=== PATIENT | male | born 1980 | race Caucasian/White ===

== ENCOUNTER → 2019-10-29 09:49 | Outpatient (CLI) | payer OTHER, SELFPAY ==
--- NOTE | 2019-10-29 09:55 | DI.RAD.S_ITS ---
PROCEDURE: XR KNEE LT 3V INDICATIONS: BILATERAL DEGENERATIVE JOINT DISEASE TECHNIQUE: 3 views of the knee were acquired. COMPARISON: None. FINDINGS: Bones: No fractures or dislocations. No suspicious bony lesions. Minimal degenerative changes of the left knee. Soft tissues: No joint effusion. No suspicious soft tissue calcifications. IMPRESSION: Left knee with minimal osteoarthritic changes. Dictated by: Nathanael Baires M.D. on 10/29/2019 at 14:43 Approved by: Nathanael Baires M.D. on 10/29/2019 at 14:44
--- NOTE | 2019-10-29 09:55 | DI.RAD.S_ITS ---
PROCEDURE: XR KNEE RT 3V INDICATIONS: BILATERAL DEGENERATIVE JOINT DISEASE TECHNIQUE: 3 views of the knee were acquired. COMPARISON: None. FINDINGS: Bones: No fractures or dislocations. Minimal tricompartmental degenerative changes of the right knee. No suspicious bony lesions. Soft tissues: No joint effusion. No suspicious soft tissue calcifications. IMPRESSION: Minimal tricompartmental osteoarthrosis of the right knee. No significant joint effusion. No acute osseous abnormalities. Dictated by: Nathanael Baires M.D. on 10/29/2019 at 14:02 Approved by: Nathanael Baires M.D. on 10/29/2019 at 14:03
== END ==
PROVIDERS: Referring Provider Family Medicine; Visit Provider Family Medicine
DX: M17.0 Bilateral primary osteoarthritis of knee (principal)
CPT/HCPCS: 73562

== ENCOUNTER 2020-04-08 16:43 | Emergency (ER) | payer OTHER, SELFPAY ==
[2020-04-08] VITALS (10 sets, daily range): BP systolic 124–147; BP diastolic 71–90; PULSE 73–91; RESP 18; TEMP 36.4; O2SAT 94–99; BMI 35.2
[2020-04-08 17:42] LABS: Add Manual Diff / Slide Review NO; Basophils Absolute Auto 100 /uL (0-100); Basophils Percent Auto 0.7 % (0-2); Eosinophils Absolute Auto 0 /uL (0-450); Eosinophils Percent Auto 0.2 % (2-4); Hematocrit 39.2 % (41-53); Hemoglobin 13.2 g/dL (13.5-17.5); Lymphocytes Absolute Auto 1700 /uL (1100-4500); Mean Corpuscular HGB Conc 33.7 % (30-36); Mean Corpuscular Hemoglobin 28.3 PG (26-34); Mean Corpuscular Volume 83.9 fL (80-100); Monocytes Absolute Auto 1100 /uL (0-900); Monocytes Percent Auto 6.7 % (3-14); Neutrophils Absolute Auto 13600 /uL (1500-7000); Neutrophils Percent Auto 82.4 % (50-75); Platelet Count 281 X10^3/uL (150-400); Red Blood Cell Count 4.67 X10^6/uL (4.5-5.9); Red Cell Distribution Width 13.7 % (11.6-14.8); White Blood Cell Count 16.5 X10^3/uL (4.5-11.0)
[2020-04-08 17:45] LABS: INR 1.2 (0.9-1.3); Prothrombin Time 13.2 SECONDS (10.1-12.7)
[2020-04-08 17:48] LABS: PTT Partial Thromboplastin Tim 32 SECONDS (26.4-36.2)
[2020-04-08 17:49] LABS: Alanine Aminotransferase 28 IU/L (<50); Albumin 4.6 g/dL (3.5-5.0); Albumin Globulin Ratio 1.6 (1.0-2.8); Alkaline Phosphatase 70 U/L (38-126); Aspartate Aminotransferase 25 IU/L (17-59); BUN Creatinine Ratio 17.7 (6-22); Bilirubin Total 0.3 mg/dL (0.2-1.3); Blood Urea Nitrogen 23 mg/dL (9-20); Calcium 9.3 mg/dL (8.4-10.2); Carbon Dioxide 29 mmol/L (22-32); Chloride 106 mmol/L (98-107); Estimated Glomerular Filt Rate > 60.0 mL/min (>60); Globulin 2.9 g/dL (1.7-4.1); Glucose 103 mg/dL (70-100); HEMOLYSIS < 15 (0-50); Lipase 75 U/L (23-300); Potassium 3.7 mmol/L (3.4-5.1); Sodium 139 mmol/L (137-145); Total Protein 7.5 g/dL (6.3-8.2)
--- NOTE | 2020-04-08 18:48 | DI.CT.S_ITS ---
PROCEDURE: CT ABDOMEN PELVIS W CON INDICATIONS: RLQ pain with leukocytosis TECHNIQUE: After the administration of intravenous contrast, 5 mm thick sections acquired from the diaphragm to the symphysis. 5 mm coronal and sagittal reformats were acquired. For radiation dose reduction, the following was used: automated exposure control, adjustment of mA and/or kV according to patient size. COMPARISON: None. FINDINGS: Image quality: Excellent. ABDOMEN: Lung bases: Lung bases are clear. Heart size is normal. Solid organs: Liver is normal in size and enhancement. Moderate hepatic steatosis is seen. No discrete hepatic lesion. Gallbladder is within normal limits. Biliary system is non dilated. Pancreas enhances normally. Spleen is normal in size and enhancement. No adrenal nodules. Right kidney is asymmetrically enlarged. Moderate right-sided hydronephrosis and hydroureter is seen.. There is mild to moderate right perinephric fat stranding. 6 millimeter calcification is seen in right UVJ consistent with right UVJ stone. No left-sided renal stone or hydronephrosis is seen. No left perinephric fat stranding. Peritoneum and bowel: Bowel loops demonstrate normal wall thickness and caliber. No free fluid or air. Appendix is visualized and is within normal limits. Nodes and vessels: No retroperitoneal or mesenteric adenopathy by size criteria. Aorta and inferior vena cava are normal in size. Miscellaneous: No ventral hernias. PELVIS: Genitourinary: Bladder wall thickness is normal. Miscellaneous: No inguinal adenopathy. Left greater than right bilateral inguinal hernia are seen containing fat only. Bones: No suspicious bony lesions. No vertebral body compression fractures. IMPRESSION: 1. 6 mm right UVJ stone with moderate right-sided hydronephrosis and hydroureter and right perinephric fat stranding. No left-sided renal stone or hydronephrosis. 2. Hepatic steatosis. No discrete hepatic lesion. 3. Normal appendix. No bowel obstruction. No free fluid or free air. Dictated by: Eduardo Brady M.D. on 04/08/2020 at 19:17 Approved by: Eduardo Brady M.D. on 04/08/2020 at 19:20
[2020-04-08 18:56] LABS: Bacteria Urine None Seen
[2020-04-08 19:13] LABS: Amorphous Sediment Urine 1+; Calcium Oxalate Crystals Urine Moderate; Mucus Urine 2+ (Negative); RBC Urine 1-5/HPF (0-5/HPF); Squamous Epithelial Cell Urine 0-1 /HPF (0-5/HPF); WBC Urine 1-5/HPF (0-5/HPF)
[2020-04-08 19:14] LABS: Culture Indicated Urine Cult Not Indicated
--- NOTE | 2020-04-08 21:31 | ED.ABDPAIN ---
HPI - Abdominal Pain General Chief Complaint: Abdominal Pain Stated Complaint: abd pain , sent by MD Time Seen by Provider: 04/08/20 18:41 Source: patient Mode of arrival: Ambulatory History of Present Illness HPI narrative: Otherwise healthy 39-year-old man with 4 days of intermittent and increasing right lower quadrant pain. He describes no fevers, cough, palpitations, dysuria, gross hematuria or constipation. Related Data Previous Rx's Medication Instructions Recorded oxycodone-acetaminophen 1 tab PO Q6H PRN 7 Days #14 tab 04/08/20 tamsulosin 0.4 mg PO DAILY #30 cap 04/08/20 Allergies Allergy/AdvReac Type Severity Reaction Status Date / Time Penicillins Allergy Hives Verified 04/08/20 17:01 Review of Systems Review of Systems ROS Unobtainable: All systems reviewed & are unremarkable except as noted in HPI and below Patient History Medical History (Updated 04/09/20 @ 01:48 by Nyla Enriquez MD) Ureterolithiasis Social History Smoking Status: Never smoker Smoking Status: Never smoker Substance Use Type: does not use Exam Narrative Exam Narrative: General: Healthy appearance, mildly uncomfortable holding his right lower quadrant. Able to give a complete and coherent history. Well-nourished well-developed HEENT: Moist mucous membranes, normal sclera with reactive pupils, Respiratory: Lungs are clear to auscultation, no wheezing no rales no rhonchi. Full and symmetrical air movement Cardiac: Regular rate and rhythm no murmurs no bruits Abdomen: Soft, mild tenderness in the right lower quadrant without rebound or guarding, good bowel tones, no flank pain Skin: Warm and dry, no rashes Neurologic: Grossly neurologically intact with no obvious asymmetries or abnormalities Extremities: No trauma, well perfused Psych: Cooperative, appropriate insight and affect Initial Vital Signs Initial Vital Signs: Vital Signs Temperature 97.5 F L 04/08/20 16:55 Pulse Rate 82 04/08/20 16:55 Respiratory Rate 18 04/08/20 16:55 Blood Pressure 144/85 H 04/08/20 16:55 Pulse Oximetry 98 04/08/20 16:55 Course Orders Ordered: ED Orders 04/08/20 17:25 Complete Blood Count AUTO DIFF Stat Comprehensive Metabolic Panel Stat Lipase Stat Partial Thromboplastin Time Stat Prothrombin Time INR Stat 04/08/20 18:15 Urine Microscopic Stat 04/08/20 18:48 CT abdomen pelvis w con Stat Discontinued Medications Hydromorphone HCl (Hydromorphone 0.5 Mg Inj) 0.5 mg IV Q15MIN PRN PRN Reason: Pain, Last Admin: 04/08/20 21:44 Dose: 0.5 mg Documented by: MICKI Sodium Chloride (Normal Saline 0.9%) 1,000 mls @ 1,000 mls/hr IV BOLUS ONE Stop: 04/08/20 22:31 Last Infusion: 04/08/20 22:57 Dose: 0 mls/hr Documented by: Admin: 04/08/20 21:45 Dose: 1,000 mls/hr Documented by: MICKI Ketorolac Tromethamine (Ketorolac 60 Mg/2 Ml Vial) 15 mg IV NOW ONE Stop: 04/08/20 21:33 Last Admin: 04/08/20 21:45 Dose: 15 mg Documented by: MICKI Ondansetron HCl (Ondansetron 4 Mg/2 Ml Inj) 4 mg IV NOW ONE Stop: 04/08/20 21:33 Last Admin: 04/08/20 21:45 Dose: 4 mg Documented by: MICKI Tamsulosin HCl (Tamsulosin 0.4 Mg Capsule) 0.4 mg PO NOW ONE Stop: 04/08/20 22:28 Last Admin: 04/08/20 22:43 Dose: 0.4 mg Documented by: OH Vital Signs Vital signs: Vital Signs - 8 hr 04/08/20 20:16 04/08/20 20:30 04/08/20 21:00 Pulse Rate 84 78 83 Blood Pressure 141/83 H 140/76 133/73 Pulse Oximetry 96 97 99 04/08/20 21:30 04/08/20 22:00 04/08/20 22:30 Pulse Rate 73 78 88 Blood Pressure 134/90 147/85 H 143/82 H Pulse Oximetry 99 95 96 04/08/20 23:00 04/08/20 23:01 04/08/20 23:30 Pulse Rate 88 91 H 76 Blood Pressure 124/75 134/71 Pulse Oximetry 95 95 94 MDM - Abdominal Pain Medical Records Attestation: I reviewed the patient's medical records. Lab Data Attestation: I reviewed the patient's lab results. Result diagrams: 04/08/20 17:25 04/08/20 17:25 Labs: Lab Results 04/08/20 04/08/20 04/08/20 Range/Units 17:25 17:25 17:25 WBC 16.5 H (4.5-11.0) X10^3/uL RBC 4.67 (4.5-5.9) X10^6/uL Hgb 13.2 L (13.5-17.5) g/dL Hct 39.2 L (41-53) % MCV 83.9 (80-100) fL MCH 28.3 (26-34) PG MCHC 33.7 (30-36) % RDW 13.7 (11.6-14.8) % Plt Count 281 (150-400) X10^3/uL Neut % (Auto) 82.4 H (50-75) % Lymph % (Auto) 10.0 L (25-40) % [place] % (Auto) 6.7 (3-14) % Eos % (Auto) 0.2 L (2-4) % Baso % (Auto) 0.7 (0-2) % Neut # (Auto) 34061 H (4681-5347) /uL Lymph # (Auto) 1700 (0404-9200) /uL [place] # (Auto) 1100 H (0-900) /uL Eos # (Auto) 0 (0-450) /uL Baso # (Auto) 100 (0-100) /uL PT 13.2 H (10.1-12.7) SECONDS INR 1.2 (0.9-1.3) APTT 32 (26.4-36.2) SECONDS Sodium 139 (137-145) mmol/L Potassium 3.7 (3.4-5.1) mmol/L Chloride 106 (98-107) mmol/L Carbon Dioxide 29 (22-32) mmol/L BUN 23 H (9-20) mg/dL Creatinine 1.30 H (0.66-1.25) mg/dL Estimated GFR > 60.0 (>60) mL/min BUN/Creatinine Ratio 17.7 (6-22) Glucose 103 H (70-100) mg/dL Calcium 9.3 (8.4-10.2) mg/dL Total Bilirubin 0.3 (0.2-1.3) mg/dL AST 25 (17-59) IU/L ALT 28 (<50) IU/L Alkaline Phosphatase 70 (38-126) U/L Total Protein 7.5 (6.3-8.2) g/dL Albumin 4.6 (3.5-5.0) g/dL Globulin 2.9 (1.7-4.1) g/dL Albumin/Globulin Ratio 1.6 (1.0-2.8) Lipase 75 (23-300) U/L Urine RBC (0-5/HPF) Urine WBC (0-5/HPF) Ur Squamous Epith Cells (0-5/HPF) Calcium Oxalate Crystal Amorphous Sediment Urine Bacteria (None) Urine Mucus (Negative) Ur Culture Indicated? 04/08/20 Range/Units 18:15 WBC (4.5-11.0) X10^3/uL RBC (4.5-5.9) X10^6/uL Hgb (13.5-17.5) g/dL Hct (41-53) % MCV (80-100) fL MCH (26-34) PG MCHC (30-36) % RDW (11.6-14.8) % Plt Count (150-400) X10^3/uL Neut % (Auto) (50-75) % Lymph % (Auto) (25-40) % [place] % (Auto) (3-14) % Eos % (Auto) (2-4) % Baso % (Auto) (0-2) % Neut # (Auto) (1986-4136) /uL Lymph # (Auto) (8700-4485) /uL [place] # (Auto) (0-900) /uL Eos # (Auto) (0-450) /uL Baso # (Auto) (0-100) /uL PT (10.1-12.7) SECONDS INR (0.9-1.3) APTT (26.4-36.2) SECONDS Sodium (137-145) mmol/L Potassium (3.4-5.1) mmol/L Chloride (98-107) mmol/L Carbon Dioxide (22-32) mmol/L BUN (9-20) mg/dL Creatinine (0.66-1.25) mg/dL Estimated GFR (>60) mL/min BUN/Creatinine Ratio (6-22) Glucose (70-100) mg/dL Calcium (8.4-10.2) mg/dL Total Bilirubin (0.2-1.3) mg/dL AST (17-59) IU/L ALT (<50) IU/L Alkaline Phosphatase (38-126) U/L Total Protein (6.3-8.2) g/dL Albumin (3.5-5.0) g/dL Globulin (1.7-4.1) g/dL Albumin/Globulin Ratio (1.0-2.8) Lipase (23-300) U/L Urine RBC 1-5/hpf (0-5/HPF) Urine WBC 1-5/hpf (0-5/HPF) Ur Squamous Epith Cells 0-1 /hpf (0-5/HPF) Calcium Oxalate Crystal Moderate H Amorphous Sediment 1+ Urine Bacteria None seen (None) Urine Mucus 2+ H (Negative) Ur Culture Indicated? Cult not indicated Point of care testing: Urine Dip Bedside Urine Glucose Negative Bedside Urine Bilirubin - Negative Bedside Urine Ketone +/- 5 Urine Specific [place] 1.030 Bedside Urine Occult Blood +/- Bedside Urine pH 6.0 Bedside Urine Protein +/- 15 Bedside Urine Urobilinogen - Negative Bedside Urine Nitrite - Negative Bedside Urine Leukocytes - Negative Esterase Imaging Data CT scan - abdomen/pelvis: Radiologist's Impression: FINDINGS: Image quality: Excellent. ABDOMEN: Lung bases: Lung bases are clear. Heart size is normal. Solid organs: Liver is normal in size and enhancement. Moderate hepatic steatosis is seen. No discrete hepatic lesion. Gallbladder is within normal limits. Biliary system is non dilated. Pancreas enhances normally. Spleen is normal in size and enhancement. No adrenal nodules. Right kidney is asymmetrically enlarged. Moderate right-sided hydronephrosis and hydroureter is seen.. There is mild to moderate right perinephric fat stranding. 6 millimeter calcification is seen in right UVJ consistent with right UVJ stone. No left-sided renal stone or hydronephrosis is seen. No left perinephric fat stranding. Peritoneum and bowel: Bowel loops demonstrate normal wall thickness and caliber. No free fluid or air. Appendix is visualized and is within normal limits. Nodes and vessels: No retroperitoneal or mesenteric adenopathy by size criteria. Aorta and inferior vena cava are normal in size. Miscellaneous: No ventral hernias. PELVIS: Genitourinary: Bladder wall thickness is normal. Miscellaneous: No inguinal adenopathy. Left greater than right bilateral inguinal hernia are seen containing fat only. Bones: No suspicious bony lesions. No vertebral body compression fractures. IMPRESSION: 1. 6 mm right UVJ stone with moderate right-sided hydronephrosis and hydroureter and right perinephric fat stranding. No left-sided renal stone or hydronephrosis. 2. Hepatic steatosis. No discrete hepatic lesion. 3. Normal appendix. No bowel obstruction. No free fluid or free air. Dictated by: Eduardo Brady M.D. on 04/08/2020 at 19:17 MDM Narrative Medical decision making narrative: 39-year-old gentleman presents with right lower quadrant pain that CT scan suggests is due to a 6 mm ureteral stone at the ureteral vesicle junction. There is no evidence of appendicitis or other intra-abdominal abscess or concerning findings. Labs are also reassuring. He responds nicely to IV fluids and Toradol. He is given initial dose of tamsulosin in the emergency department. Pain is adequately controlled at this point no evidence of acute renal failure. He did have a moderate leukocytosis however I suspect that this is due to demargination rather than acute infection. He has no other infectious source identified in his urine does not show any bacteria. CT scan does not suggest perinephric stranding to raise concerns of pyelonephritis are infection associated with the newly diagnosed kidney stone. Questions are answered and anticipatory guidance reviewed. Patient is safe for home discharge Discharge Plan Departure Patient Disposition: Home Clinical Impression: Ureterolithiasis Instructions: DI for Kidney Stones Activity Restrictions/Additional Instructions: Thank you for coming in today You have a 6 mm kidney stone on the right side almost ready to drop into your bladder. I am going to send you home with small prescription for Percocet if you continue to have pain. Using 400 mg of ibuprofen (2 [id number] pills) and 1 Tylenol every 6 hours can be very helpful in controlling pain. For severe pain to ibuprofen and 1 Percocet can be very helpful. I am also going to give you a prescription for Flomax. This can help the tissue relax enough for the stone to more easily pass. Once the stone is out you can stop taking the Flomax Your white blood cell count today was slightly elevated but I did not find any other evidence of infection. If you develop fevers or if begins to burn with urination or feel like a bladder infection, you need to return to the emergency department I am going to suggest that you follow-up with our urologist, Dr. Bacon. I hope you feel better Prescriptions: New oxycodone-acetaminophen 5-325 mg tablet 1 tab PO Q6H PRN (Reason: pain) 7 Days Qty: 14 RF: 0 tamsulosin 0.4 mg capsule 0.4 mg PO DAILY Qty: 30 RF: 0 Referrals: Jesus Feliciano MD [Primary Care Provider] - Renetta Bacon MD [Physician] -
[2020-04-08] MEDS: HYDROMORPHONE 0.5 MG INJ IV (21:44)
[2020-04-08] MEDS: ONDANSETRON 4 MG/2 ML INJ IV (21:45)
[2020-04-08] MEDS: KETOROLAC 60 MG/2 ML VIAL 15 MG IV (21:45)
[2020-04-08] MEDS: SODIUM CHLORIDE 0.9% 1,000 ML 1000 ML IV (21:45)
[2020-04-08] MEDS: TAMSULOSIN 0.4 MG CAPSULE PO (22:43)
== END 2020-04-08 23:57 | disposition home or self-care (01) ==
PROVIDERS: Emergency Medicine; Emergency Provider Emergency Medicine; PCP Family Medicine
DX: N20.1 Calculus of ureter (principal); D72.829 Elevated white blood cell count, unspecified
CPT/HCPCS: 36415; 74177; 80053; 81003; 81015; 83690; 85025; 85610; 85730; 96361; 96374; 96375; 99283; 99284; J1170; J1885; J2405

== ENCOUNTER → 2024-07-05 11:16 | Outpatient (CLI) | payer OTHER, SELFPAY ==
[2024-07-05 12:14] LABS: Add Manual Diff / Slide Review NO; Basophils Absolute Auto 100 /uL (0-100); Eosinophils Absolute Auto 100 /uL (0-450); Eosinophils Percent Auto 1.1 % (2-4); Hematocrit 41.4 % (41-53); Hemoglobin 14.4 g/dL (13.5-17.5); Lymphocytes Absolute Auto 2300 /uL (1100-4500); Lymphocytes Percent Auto 22.9 % (25-40); Mean Corpuscular HGB Conc 34.8 % (30-36); Mean Corpuscular Hemoglobin 29.5 PG (26-34); Mean Corpuscular Volume 84.8 fL (80-100); Monocytes Absolute Auto 900 /uL (0-900); Monocytes Percent Auto 9.3 % (3-14); Neutrophils Absolute Auto 6600 /uL (1500-7000); Neutrophils Percent Auto 65.7 % (50-75); Platelet Count 269 X10^3/uL (150-400); Red Blood Cell Count 4.88 X10^6/uL (4.5-5.9); Red Cell Distribution Width 14.3 % (11.6-14.8)
[2024-07-05 12:44] LABS: Alanine Aminotransferase 23 IU/L (<50); Albumin 4.7 g/dL (3.5-5.0); Alkaline Phosphatase 60 U/L (38-126); Aspartate Aminotransferase 22 IU/L (17-59); Bilirubin Total 0.5 mg/dL (0.2-1.3); Blood Urea Nitrogen 16 mg/dL (9-20); Calcium 9.5 mg/dL (8.4-10.2); Carbon Dioxide 24 mmol/L (22-32); Chloride 107 mmol/L (98-107); Estimated Glomerular Filt Rate > 60 mL/min (>60); Globulin 2.3 g/dL (1.7-4.1); Glucose 72 mg/dL (70-99); HEMOLYSIS < 15 (0-50); Potassium 4.6 mmol/L (3.4-5.1); Sodium 140 mmol/L (137-145)
== END ==
LOC: LAB 11:19
PROVIDERS: PCP Family Medicine; Referring Provider Family Medicine; Visit Provider Family Medicine
DX: K21.9 Gastro-esophageal reflux disease without esophagitis (principal)
CPT/HCPCS: 36415; 80053; 85025